=== PATIENT | male | born 1970 | race Caucasian/White ===

== ENCOUNTER 2019-01-09 12:25 | Emergency (ER) | payer BC ==
[2019-01-09 12:44] VITALS: BP 120/76
--- NOTE | 2019-01-09 13:12 | ED ---
Lower Extremity - HPI Summary HPI Summary: 48 yr old male with the complaint of right knee pain. ONset of pain yesterday. He was playing basketball with his son and twisted his knee. He has pain in the knee with effusion today. It hurts to bear weight. He states he felt something pop when he twisted the knee. Pain is moderate. No other complaints. - History of Current Complaint Chief Complaint: UCLowerExtremity Stated Complaint: RT KNEE INJURY Time Seen by Provider: 01/09/19 12:51 Pain Intensity: 8 - Allergies/Home Medications Allergies/Adverse Reactions: Allergies Allergy/AdvReac Type Severity Reaction Status Date / Time codeine AdvReac Nausea And Verified 01/09/19 12:44 Vomiting Home Medications: Home Medications Acetaminophen [Tylenol] 1,000 mg PO ONCE PRN 01/09/19 [History Confirmed ] Aspirin 81 mg CHEW TAB* [Aspirin Low Dose TAB*] 81 mg PO DAILY 01/09/19 [ History Confirmed 01/09/19] Atorvastatin* [Lipitor*] 80 mg PO DAILY 01/09/19 [History Confirmed 01/09/19] Brimonidine Tartrate/Timolol [Combigan 0.2%-0.5% Eye Drops] 5 ml OP DAILY [History Confirmed 01/09/19] Lisinopril TAB* [Prinivil TAB*] 5 mg PO DAILY 01/09/19 [History Confirmed ] Metoprolol Succinate XL TAB* [Toprol XL TAB*] 50 mg PO DAILY 01/09/19 [History Confirmed 01/09/19] Pantoprazole TAB * [Protonix TAB*] 40 mg PO DAILY 01/09/19 [History Confirmed ] PMH/Surg Hx/FS Hx/Imm Hx - Surgical History Surgery Procedure, Year, and Place: hernia. testicle removed Infectious Disease History: No Infectious Disease History: Denies: Traveled Outside the [place] in Last 30 Days - Family History Known Family History: Positive: None - Social History Occupation: Employed Full-time Lives: With Family Alcohol Use: Daily Alcohol Amount: 2 drinks per day Substance Use Type: Reports: None Smoking Status (MU): Former Smoker Length of Time of Smoking/Using Tobacco: 20 years Review of Systems Constitutional: Negative Positive: Other - knee pain, right All Other Systems Reviewed And Are Negative: Yes Physical Exam Triage Information Reviewed: Yes Vital Signs On Initial Exam: Initial Vitals Temp Pulse Resp BP Pulse Ox 98.2 F 54 16 120/76 100 01/09/19 12:39 01/09/19 12:39 01/09/19 12:39 01/09/19 12:39 01/09/19 12:39 Vital Signs Reviewed: Yes Appearance: Positive: Well-Appearing, No Pain Distress Skin: Positive: Warm, Skin Color Reflects Adequate Perfusion Head/Face: Positive: Normal Head/Face Inspection Eyes: Positive: EOMI, LILLY ENT: Positive: Normal ENT inspection Neck: Positive: Nontender Respiratory/Lung Sounds: Positive: Clear to Auscultation, Breath Sounds Present Cardiovascular: Positive: RRR. Negative: Murmur Abdomen Description: Negative: Distended Musculoskeletal: Positive: Strength/ROM Intact, Other - effusion right knee with some tenderness over the medial patella. No bruise, no erythema. Neurological: Positive: Sensory/Motor Intact, Alert, Oriented to Person Place, Time, CN Intact II-III, Speech Normal Psychiatric: Positive: Normal Diagnostics - Vital Signs Vital Signs Temp Pulse Resp BP Pulse Ox 01/09/19 12:39 98.2 F 54 16 120/76 100 - Laboratory Lab Statement: Any lab studies that have been ordered have been reviewed, and results considered in the medical decision making process. - Radiology right knee Radiology Interpretation Completed By: Radiologist - medial compartment osteoarthritis Lower Extremity Course/Dx - Course Course Of Treatment: 48 yr old male with right knee osteoarthritis. DC home. FU WITH ORTHO/PMD. DR RODRIGUEZ REFERRAL. - Diagnoses Provider Diagnoses: Internal derangement of right knee Discharge - Sign-Out/Discharge Documenting (check all that apply): Patient Departure All imaging exams completed and their final reports reviewed: Yes - Discharge Plan Condition: Good Disposition: HOME Patient Education Materials: Osteoarthritis (ED), Knee Pain (ED) Referrals: Reyna DOLAN,Mikki Andersen [Primary Care Provider] - 2 Days Susan Rodriguez MD [Medical Doctor] - 2 Days - Billing Disposition and Condition Condition: GOOD Disposition: Home
--- OUTSIDE RECORDS SUMMARY | 2019-01-09 14:37 | XMS REPORT | Continuity of Care Document ---
:1970 External Reference #:[id number] Author Name Mikki Orellana MD Address [address] [facility], [address] [place] [address] Care Team Providers Name Role Phone Mikki Orellana MD Care Team Information Community Youth Secretary Unavailable Payers Date Identification Numbers Payment Provider Subscriber PayID: [id number] [employer] Hanna Nobles [address] [address] [place] [address] Problems Active Problems Provider Date Mixed hyperlipidemia Mikki Orellana MD Onset: 07/14/2010 Tobacco user Mikki Orellana MD Onset: 07/14/2010 Family History Date Family Member(s) Observation Comments Father due to from [place], at 58 () Father [place] Mother due to from liver failure at 71 () Social History Type Date Description Comments Sex Unknown Marital Status Lives With Spouse Lives With Daughter Occupation Community Services Officer at [employer] Tobacco Use Start: Unknown End: Unknown Patient is a former smoker Allergies, Adverse Reactions, Alerts Active Allergies Reaction Severity Comments Date Codeine vomiting 09/06/2001 Medications Active Medications SIG Qnty Indications Ordering Provider Date Fluconazole 1 by mouth every 7tabs Mikki Orellana MD 12/25/2018 100mg Tablets day x 7days Aspir-81 1 by mouth every Mikki Orellana MD 02/11/[address] day Pantoprazole Sodium 1 by mouth twice 60tabs Mikki Orellana MD 09/11/2013 40mg a day Tablets DR Castro 1 tab sl stat as 1BTL R07.9 Mikki Orellana MD 05/23/2013 0.4mg Tablets needed for c.p Sub may repeat q5min x 2 if no relief after 3 tabs call 911. Glaucoma Eye gtts qd Unknown Atorvastatin Calcium 1 po qd 90tabs Unknown 80mg Tablets Metoprolol Succinate 1 po qd 30tabs Unknown ER 50mg Tablets ER 24HR Lisinopril 1 by mouth every Unknown 2.5mg Tablets day History Medications Doxycycline Hyclate 1 by mouth twice 28caps Mikki Orellana, 03/22/2016 - a day with food 03/28/2017 100mg Capsules Chantix 1 by mouth twice 60tabs Mikki Orellana, 01/20/2016 - 1mg Tablets a day 03/01/2016 Doxycycline Hyclate 1 by mouth twice 20caps iMkki Orellana, 09/16/2015 - a day with food 03/01/2016 100mg Capsules Prednisone 2 by mouth every 10tabs Mikki Orellana, 09/16/2015 - 20mg day x 5d 03/01/2016 Tablets Chantix Starting take as directed 1pk Mikki Orellana, 09/16/2015 - Month Wesley 03/28/2017 0.5mg X 11 & 1 mg X 42 Tablets Azithromycin 2 by mouth today 6tabs Mkiki Orellana, 11/18/2014 - 250mg and 1 by mouth 09/15/2015 Tablets every day for 4 days Chantix Starter Pack as 1Kit Mikki Orellana, 02/11/2014 - 0.5mg Tablets Directed 09/08/2014 Chantix 1 by mouth twice 60tabs Mikki Orellana, 02/11/2014 - 1mg Tablets a day 03/28/2017 Citalopram 1 by mouth every 30tabs Mikki Orellana, 02/11/2014 - Hydrobromide day 09/08/2014 10mg Tablets Work Note pt is out of Mikki Orellana, 06/03/2013 - work for 2 weeks 09/10/2013 due to illness. starting date today Chantix 1 po bid 60tabs Mikki Orellana, 06/12/2012 - 1mg Tablets MD 05/22/2013 Chantix Starter Pack as 1Kit Mikki Orellana, 06/12/2012 - 0.5mg Tablets Directed MD 05/22/2013 Omnicef 1 po bid 14caps 382.9 Mikki Orellana, 06/22/2010 - 300mg MD 06/11/2012 Capsules Nexium 1 po qd 30caps Mikki Orellana, 07/01/2008 - 40mg Capsules MD 09/11/2013 DR Alvarez 1 po tid prn 30tabs Mikki Orellana, 06/09/2008 - 10mg Tablets MD 02/03/2009 Ibuprofen 1 PO tid prn 90tabs Mikki Orellana, 06/09/2008 - 800mg MD 2014 Tablets Chantix 1 PO bid 60tabs Mikki Orellana, 11/27/2007 - 1mg Tablets MD 05/06/2008 Chantix Starter Pack as 1Kit Mikki Orellana, 09/20/2007 - 0.5mg Tablets Directed MD 05/06/2008 Prilosec OTC 1 po qd 30tabs Mikki Orellana, 07/17/2007 - 20mg MD 08/05/[address] Diaz 1 po bid with 20tabs Mikki Orellana, 04/23/2007 - 500mg Tablets food MD 05/03/2007 Niacin 4 po qd 120tabs Mikki Orellana, 04/26/2006 - 500mg Tablets MD 2014 Proctofoam HC Use as Directed 1CanistMikki Car, 04/05/2006 - 1%;1 % tid MD 10/23/2007 Foam Wellbutrin 1 po qd for 3 60tabs Mikki Orellana, 03/21/2006 - 100mg days then MD 10/24/2006 Tablets increase to bid Omnicef 1 PO bid 20caps 382.9 Mikki Orellana, 09/16/2004 - 300mg MD 09/26/2004 Capsules Zyrtec D 1 PO bid 14tabs 382.9 Mikki Orellana, 09/16/2004 - 5mg;120 mg MD 09/23/2004 Tablets Rhinocort Aqua Nasal one spray each 1units Mikki Orellana, 08/09/2004 - [place] nostril daily 09/16/2004 32mcg/Inhalation Suspension Augmentin 1 po po bid with 20tabs Mikki Orellana, 05/19/2004 - 875mg food 10/24/2006 Tablets Zithromax 2 PO Day 1, 1 PO 6tabs Quynh Gomez, 10/23/2003 - 250mg qd X Day 2-5 RN,RAFAL,MS 10/28/2003 Tablets Prevacid 1 po qd 30caps Mikki Orellana, 08/22/2001 - 30mg Caps 07/01/2008 Aspir-81 1 po qd 90tabs Unknown - 81mg Tablets 02/11/2014 Pantoprazole Sodium 1 po qd Unknown - 2014 Tablets Clopidogrel 1 po qd 30tabs Unknown - 75mg 03/01/2016 Tablets Medications Administered in Office Medication SIG Qnty Indications Ordering Provider Date PPD Injection Mikki Orellana MD 06/12/2012 Immunizations CPT Code Status Date Vaccine Lot # [id number] Given 04/02/2018 Influenza Vac, Quadrivalent, Split, 0.5mL Dosage, Im Use [id number] Given 03/28/2017 Influenza Vaccine Quadrivalent Preser/Antibiotic Free [place] Use [id number] Given 03/02/2016 Tdap (Adacel) Ages 7 And Above Only [id number] Given 03/02/2016 Afluria Or Fluvirin Flu Vac Intramuscular [id number] Q2037 Given 03/08/2015 Fluvirin Immunization Q2037 Given 02/11/2014 Fluvirin Immunization [id number] Q2037 Given 02/12/2013 Fluvirin Immunization [id number] Q2036 Given 02/23/2011 Flulaval Immunization [id number] Given 02/23/2010 Afluria Or Fluvirin Flu Vac Intramuscular [id number] Given 04/04/2007 Afluria Or Fluvirin Flu Vac Intramuscular [id number] 33747 Given 08/09/2004 Immunization Td 7 Yrs Or Older Vital Signs Date Vital Result Comment 12/25/2018 9:45am Body Temperature 98.1 F Weight 248.00 lb Heart Rate 88 /min BP Systolic 142 mmHg BP Diastolic 92 mmHg BP Systolic Recheck 130 mmHg BP Diastolic Recheck 82 mmHg 04/24/2018 10:55am Body Temperature 96.8 F Weight 251.00 lb Heart Rate 66 /min BP Systolic 118 mmHg BP Diastolic 70 mmHg 10/03/2017 8:10am Body Temperature 98.1 F Weight 246.00 lb Heart Rate 68 /min BP Systolic 122 mmHg BP Diastolic 68 mmHg 03/28/2017 7:55am Body Temperature 97.8 F Weight 235.00 lb Heart Rate 60 /min BP Systolic 146 mmHg BP Diastolic 96 mmHg BP Systolic Recheck 130 mmHg BP Diastolic Recheck 84 mmHg 09/20/2016 9:01am Body Temperature 97.6 F Weight 232.00 lb Heart Rate 72 /min BP Systolic 116 mmHg BP Diastolic 80 mmHg Height 70 inches 5'10" BMI (Body Mass Index) 33.3 kg/m2 03/22/2016 9:18am Body Temperature 98.0 F Weight 236.00 lb Heart Rate 80 /min BP Systolic 120 mmHg BP Diastolic 70 mmHg 03/02/2016 9:55am Body Temperature 98.1 F Weight 244.00 lb Heart Rate 80 /min BP Systolic 124 mmHg BP Diastolic 64 mmHg Height 70 inches 5'10" BMI (Body Mass Index) 35.0 kg/m2 01/20/2016 3:17pm Body Temperature 98.0 F Weight 246.00 lb BP Systolic 126 mmHg BP Diastolic 84 mmHg Height 70 inches 5'10" BMI (Body Mass Index) 35.3 kg/m2 09/16/2015 8:30am Body Temperature 97.2 F Weight 244.00 lb Heart Rate 80 /min BP Systolic 112 mmHg BP Diastolic 76 mmHg Height 70 inches 5'10" BMI (Body Mass Index) 35.0 kg/m2 11/18/2014 11:13am Body Temperature 96.8 F Weight 235.00 lb Heart Rate 60 /min BP Systolic 112 mmHg BP Diastolic 82 mmHg Height 70 inches 5'10" BMI (Body Mass Index) 33.7 kg/m2 09/09/2014 11:04am Body Temperature 97.9 F Weight 237.00 lb Heart Rate 60 /min BP Systolic 108 mmHg BP Diastolic 62 mmHg Height 70 inches 5'10" BMI (Body Mass Index) 34.0 kg/m2 02/11/2014 10:30am Body Temperature 97.7 F Weight 247.00 lb Heart Rate 80 /min BP Systolic 136 mmHg BP Diastolic 82 mmHg Height 70 inches 5'10" BMI (Body Mass Index) 35.4 kg/m2 09/11/2013 9:35am Body Temperature 97.8 F Weight 249.00 lb Heart Rate 60 /min BP Systolic 122 mmHg BP Diastolic 76 mmHg Height 70 inches 5'10" BMI (Body Mass Index) 35.7 kg/m2 05/23/2013 2:14pm Body Temperature 97.3 F Weight 226.00 lb Heart Rate 70 /min BP Systolic 132 mmHg BP Diastolic 84 mmHg Height 70 inches 5'10" BMI (Body Mass Index) 32.4 kg/m2 06/12/2012 11:18am Body Temperature 98.2 F Weight 228.00 lb Heart Rate 60 /min BP Systolic 148 mmHg BP Diastolic 92 mmHg Height 70 inches 5'10" BMI (Body Mass Index) 32.7 kg/m2 06/29/2010 11:05am Body Temperature 98.7 F Weight 221.00 lb Heart Rate 60 /min BP Systolic 132 mmHg BP Diastolic 62 mmHg Height 70 inches 5'10" BMI (Body Mass Index) 31.7 kg/m2 06/22/2010 11:27am Body Temperature 97.4 F Weight 220.00 lb Heart Rate 60 /min BP Systolic 104 mmHg BP Diastolic 68 mmHg Height 70 inches 5'10" BMI (Body Mass Index) 31.6 kg/m2 02/03/2009 11:02am Body Temperature 96.7 F Weight 225.00 lb Heart Rate 70 /min BP Systolic 126 mmHg BP Diastolic 84 mmHg 06/09/2008 1:44pm Body Temperature 98.3 F Weight 216.00 lb Heart Rate 60 /min BP Systolic 124 mmHg BP Diastolic 76 mmHg 05/06/2008 2:51pm Body Temperature 97.3 F Weight 214.00 lb Heart Rate 60 /min BP Systolic 102 mmHg BP Diastolic 68 mmHg 10/23/2007 8:18am Body Temperature 96.3 F Weight 219.00 lb Heart Rate 70 /min BP Systolic 106 mmHg BP Diastolic 64 mmHg 10/24/2006 8:51am Body Temperature 97.2 F Weight 215.00 lb Heart Rate 80 /min BP Systolic 108 mmHg BP Diastolic 76 mmHg 07/18/2006 9:57am Body Temperature 97.3 F Weight 211.00 lb Heart Rate 70 /min BP Systolic 108 mmHg BP Diastolic 70 mmHg 06/06/2006 8:56am Body Temperature 98.0 F Weight 214.00 lb Heart Rate 80 /min BP Systolic 106 mmHg BP Diastolic 82 mmHg 04/05/2006 2:08pm Body Temperature 96.9 F Weight 211.00 lb Heart Rate 60 /min BP Systolic 110 mmHg BP Diastolic 66 mmHg 03/21/2006 11:17am Body Temperature 98.5 F Weight 211.00 lb Heart Rate 80 /min BP Systolic 114 mmHg BP Diastolic 80 mmHg 11/29/2005 1:35pm Body Temperature 97.8 F Weight 214.00 lb Heart Rate 70 /min BP Systolic 124 mmHg BP Diastolic 78 mmHg 06/28/2005 10:27am Body Temperature 97.7 F Weight 206.00 lb Heart Rate 60 /min BP Systolic 136 mmHg BP Diastolic 64 mmHg 09/16/2004 2:27pm Body Temperature 97.2 F Weight 209.00 lb BP Systolic 104 mmHg BP Diastolic 70 mmHg 08/09/2004 11:10am Body Temperature 96.9 F Weight 209.00 lb Heart Rate 70 /min BP Systolic 124 mmHg BP Diastolic 72 mmHg 05/19/2004 11:29am Body Temperature 96.5 F Weight 206.00 lb Heart Rate 70 /min BP Systolic 106 mmHg BP Diastolic 74 mmHg 10/23/2003 8:46am Body Temperature 98.7 F Weight 204.00 lb Heart Rate 72 /min BP Systolic 110 mmHg BP Diastolic 60 mmHg Respiratory Rate 20 /min 02/12/2003 9:52pm Body Temperature 98.7 F Weight 203.00 lb Heart Rate 80 /min BP Systolic 128 mmHg BP Diastolic 62 mmHg Respiratory Rate 20 /min 10/17/2001 9:25pm Body Temperature 98.6 F Heart Rate 80 /min BP Systolic 110 mmHg Sitting BP Diastolic 64 mmHg Sitting BP Systolic Recheck 118 mmHg Lying BP Diastolic Recheck 60 mmHg Lying 09/05/2001 12:23pm Body Temperature 98.7 F Weight 210.00 lb Heart Rate 70 /min BP Systolic 120 mmHg BP Diastolic 70 mmHg Results Test Date Facility Test Result H/L Range Note Laboratory test 12/25/2018 [facility] Hemoglobin A1c <pending> finding Basic (BMP) 04/24/2018 [facility] Sodium 139 mmol/L 135-146 1 Potassium 4.8 mmol/L 3.5-5.2 Chloride# 105 mmol/L 97-110 2 Carbon Dioxide 27 mmol/L 24-34 Glucose 112 mg/dL High 70-105 BUN 11 mg/dL 6-26 Creatinine 1.0 mg/dL 0.5-1.4 Calcium 9.9 mg/dL 8.5-10.2 Non Nita Egfr >60 >60 3 Nita Egfr >60 >60 4 Anion Gap 7 mmol/L 5-15 5 Laboratory test finding 04/24/2018 [facility] PSA 1.080 ng/mL 0.000-4.000 6 Hemoglobin A1c 04/24/2018 [facility] Hemoglobin A1c 5.8 % 4.1-5.9 Estimated Average Glucose Calc 120 mg/dL 71-140 Lipid Treatment 04/24/2018 [facility] Cholesterol 100 mg/dL 50-199 Triglycerides 100 mg/dL 30-200 HDL 34 mg/dL 7 Chol/ HDL Ratio 2.9 ratio Low 4.0-6.7 VLDL 20 mg/dL 2-29 LDL (Calc) 46 mg/dL 20-99 8 Alt 68 U/L High -42 Ast 38 U/L 8- Basic (BMP) 10/03/2017 [facility] Sodium 140 mmol/L 135-146 9 Potassium 4.4 mmol/L 3.5-5.2 Chloride# 106 mmol/L 97-110 10 Carbon Dioxide 26 mmol/L 24-34 Glucose 134 mg/dL High 70-105 BUN 18 mg/dL 6-26 Creatinine 1.1 mg/dL 0.5-1.4 Calcium 9.7 mg/dL 8.5-10.2 Non Nita Egfr >60 >60 11 Nita Egfr >60 >60 12 Anion Gap 8 mmol/L 5-15 13 Hemoglobin A1c 10/03/2017 [facility] Hemoglobin A1c 5.7 % 4.1-5.9 Estimated Average Glucose Calc 117 mg/dL 71-140 Lipid Treatment 10/03/2017 [facility] Cholesterol 91 mg/dL 50-199 Triglycerides 72 mg/dL 30-200 HDL 35 mg/dL 14 Chol/ HDL Ratio 2.6 ratio Low 4.0-6.7 VLDL 14 mg/dL 2-29 LDL (Calc) 42 mg/dL 20-99 15 Alt 56 U/L High 3-42 Ast 27 U/L 8-42 Lipid Treatment 03/28/2017 [facility] Cholesterol 89 mg/dL 50-199 Triglycerides 120 mg/dL 30-200 HDL 32 mg/dL 16 Chol/ HDL Ratio 2.8 ratio Low 4.0-6.7 VLDL 24 mg/dL 2-29 LDL (Calc) 33 mg/dL 20-99 17 Alt 43 U/L High 3-42 Ast 22 U/L 8-42 Hemoglobin A1c 03/28/2017 [facility] Hemoglobin A1c 5.5 % 4.1-5.9 Estimated Average Glucose Calc 111 71-140 Basic (BMP) 03/28/2017 [facility] Sodium 140 mmol/L 135-146 18 Potassium 4.1 mmol/L 3.5-5.2 Chloride# 106 mmol/L 97-110 19 Carbon Dioxide 27 mmol/L 24-34 Glucose 133 mg/dL High 70-105 Creatinine 1.1 mg/dL 0.5-1.4 Calcium 10.0 mg/dL 8.5-10.2 Non Nita Egfr >60 >60 20 Nita Egfr >60 >60 21 Anion Gap 7 mmol/L 7-16 22 BUN 17 mg/dL 6-26 Basic (BMP) 09/20/2016 [facility] Sodium 140 mmol/L 135-146 23 Potassium 3.9 mmol/L 3.5-5.2 Chloride# 107 mmol/L 97-110 24 Carbon Dioxide 28 mmol/L 24-34 Glucose 146 mg/dL High 70-105 BUN 15 mg/dL 6- Creatinine 0.8 mg/dL 0.5-1.4 Calcium 9.5 mg/dL 8.5-10.2 Non Nita Egfr >60 >60 25 Nita Egfr >60 >60 26 Anion Gap 9 mmol/L 7-16 27 [facility] 5.7 % 4.1-5.9 Estimated Average Glucose Calc 117 71-140 Lipid Treatment 09/20/2016 [facility] Cholesterol 90 mg/dL 50-199 Triglycerides 93 mg/dL 30-200 HDL 31 mg/dL 29- 28 Chol/ HDL Ratio 2.9 ratio Low 4.0-6.7 VLDL 19 mg/dL 2-29 LDL (Calc) 40 mg/dL 20-99 29 Alt 28 U/L 3-42 Ast 15 U/L 8-42 Laboratory test finding 03/30/2016 [facility] Hemoglobin A1c 5.7 % 4.1-5.9 Basic (BMP) 03/22/2016 [facility] Sodium 136 mmol/L 134-142 Potassium 3.9 mmol/L 3.5-5.2 Chloride 108 mmol/L 97-109 Carbon Dioxide 25 mmol/L 24-34 Glucose 150 mg/dL High 70-105 BUN 12 mg/dL 6- Creatinine 1.0 mg/dL 0.5-1.4 Calcium 9.5 mg/dL 8.5-10.2 Anion Gap 7 mmol/L 11-08 Non Nita Egfr >60 >60 30 Nita Egfr >60 >60 31 Lipid Treatment 03/22/2016 [facility] Cholesterol 93 mg/dL 50-199 Triglycerides 135 mg/dL 30-200 HDL 24 mg/dL Low 29-71 32 Chol/ HDL Ratio 3.9 ratio Low 4.0-6.7 VLDL 27 mg/dL 2- LDL (Calc) 42 mg/dL 20-99 33 Alt 37 U/L 3- Ast 20 U/L 8- Basic (BMP) 09/09/2014 [facility] Sodium 141 mmol/L 134-142 Potassium 4.2 mmol/L 3.5-5.2 Chloride 106 mmol/L 97-109 Carbon Dioxide 25 mmol/L 24-34 Glucose 110 mg/dL High 70-105 BUN 12 mg/dL 11-20 Creatinine 0.9 mg/dL 0.5-1.4 Calcium 9.4 mg/dL 8.5-10.2 Anion Gap 14 mmol/L 11-08 Non Nita Egfr >60 >60 34 Nita Egfr >60 >60 35 Lipid Treatment 09/09/2014 [facility] Cholesterol 92 mg/dL 50-199 Triglycerides 140 mg/dL 30-200 HDL 29 mg/dL 36 Chol/ HDL Ratio 3.2 ratio Low 4.0-6.7 VLDL 28 mg/dL LDL (Calc) 35 mg/dL 20-99 37 Alt 41 U/L Ast 22 U/L - Basic (BMP) 02/11/2014 [facility] Sodium 138 mmol/L 134-142 38 Potassium 4.1 mmol/L 3.5-5.2 Chloride 106 mmol/L 97-109 Carbon Dioxide 28 mmol/L 24-34 Glucose 114 mg/dL High 70-105 BUN 14 mg/dL 6 Creatinine 0.8 mg/dL 0.5-1.4 Calcium 9.4 mg/dL 8.5-10.2 Anion Gap 8 mmol/L 11-08 Non Nita Egfr >60 >60 39 Nita Egfr >60 >60 40 Lipid Treatment 02/11/2014 [facility] Cholesterol 86 mg/dL 50-199 Triglycerides 108 mg/dL 30-200 HDL 28 mg/dL Low 29-71 41 Chol/ HDL Ratio 3.1 ratio Low 4.0-6.7 VLDL 22 mg/dL 2-29 LDL (Calc) 36 mg/dL 20-99 42 Alt 47 U/L High 3-42 Ast 20 U/L 8-42 Laboratory test finding 09/11/2013 [facility] TSH 1.99 uIU/mL 0.34-5.60 Free T4 0.80 ng/dL 0.50-1.60 Comprehensive Metabolic (CMP) 09/11/2013 [facility] Sodium 141 mmol/L 134- 142 Potassium 4.4 mmol/L 3.5-5.2 Chloride 107 mmol/L 97-109 Carbon Dioxide 28 mmol/L 24-34 Glucose 103 mg/dL 70-105 BUN 20 mg/dL 6-26 Creatinine 1.0 mg/dL 0.5-1.4 Calcium 9.6 mg/dL 8.5-10.2 Total Protein 6.9 g/dL 6.0-8.0 Albumin 4.7 g/dL 3.6-4.9 Globulin 2.2 g/dL 2.0-3.5 A/G Ratio 2.1 Ratio 1.0-2.2 Total Bilirubin 0.6 mg/dL 0.1-1.3 Alkaline Phosphatase 85 U/L 24-140 Alt 44 U/L High 3-42 Ast 19 U/L 8-42 Anion Gap 10 mmol/L 6-14 Nita Egfr >60 >60 43 Non Nita Egfr >60 >60 44 Laboratory test finding 09/11/2013 [facility] CPK 89 U/L 12-199 CBC With Auto Diff 09/11/2013 [facility] WBC 6.0 K/uL 4.1-11.0 RBC 4.96 M/uL 4.60-6.10 Hemoglobin 15.8 gm/dL 13.5-18.0 Hematocrit 45.0 % 41.0-53.0 MCV 90.8 fL 80.0-97.0 MCH 31.8 pg 27.0-32.0 MCHC 35.1 g/dL 32.0-36.0 RDW 13.2 % 11.5-14.5 PLT Count 113 K/ul Low 140-400 Neutrophil 67.1 % 35.0-75.0 Lymphocyte 25.0 % 16.0-52.0 Monocyte 5.9 % 2.0-10.0 Eosinophil 1.3 % 0.0-5.0 Basophil 0.7 % 0.0-4.0 Abs Neutrophils 4.0 K/uL 2.1-8.0 Abs Lymphocytes 1.5 K/uL 0.8-5.5 Abmon 0.4 K/uL 0.1-1.0 Abs Eosinophils 0.1 K/uL 0.0-0.5 Abs Basophils 0.0 K/uL 0.0-0.3 CBC With Auto Diff 05/23/2013 [facility] WBC 10.7 K/uL 4.1-11.0 RBC 5.06 M/uL 4.60-6.10 Hemoglobin 16.1 gm/dL 13.5-18.0 Hematocrit 46.9 % 41.0-53.0 MCV 92.8 fL 80.0-97.0 MCH 31.9 pg 27.0-32.0 MCHC 34.3 g/dL 32.0-36.0 RDW 12.8 % 11.5-14.5 PLT Count Large platelets <SEE NOTE> K/ul 140-400 45 Neutrophil 68.5 % 35.0-75.0 Lymphocyte 22.8 % 16.0-52.0 Monocyte 5.6 % 2.0-10.0 Eosinophil 2.7 % 0.0-5.0 Basophil 0.4 % 0.0-4.0 Abs Neutrophils 7.3 K/uL 2.1-8.0 Abs Lymphocytes 2.4 K/uL 0.8-5.5 Abmon 0.6 K/uL 0.1-1.0 Abs Eosinophils 0.3 K/uL 0.0-0.5 Abs Basophils 0.0 K/uL 0.0-0.3 Laboratory test finding 05/23/2013 [facility] TSH 1.05 uIU/mL 0.34-5.60 Lipid 05/23/2013 [facility] Cholesterol 172 mg/dL 50-199 Triglycerides 309 mg/dL High 30-200 HDL 32 mg/dL 29-71 46 Chol/ HDL Ratio 5.4 ratio 4.0-6.7 VLDL 62 mg/dL High 2-29 LDL (Calc) 78 mg/dL 20-99 47 Comprehensive Metabolic (CMP) 05/23/2013 [facility] Sodium 138 mmol/L 134- 142 Potassium 4.1 mmol/L 3.5-5.2 Chloride 106 mmol/L 97-109 Carbon Dioxide 27 mmol/L 24-34 Glucose 91 mg/dL 70-105 BUN 16 mg/dL 6-26 Creatinine 0.9 mg/dL 0.5-1.4 Calcium 9.8 mg/dL 8.5-10.2 Total Protein 7.1 g/dL 6.0-8.0 Albumin 4.6 g/dL 3.6-4.9 Globulin 2.5 g/dL 2.0-3.5 A/G Ratio 1.8 Ratio 1.0-2.2 Total Bilirubin 0.4 mg/dL 0.1-1.3 Alkaline Phosphatase 70 U/L 24-140 Alt 26 U/L 3-42 Ast 19 U/L 8-42 Anion Gap 9 mmol/L 6-14 Nita Egfr >60 >60 48 Non Nita Egfr >60 >60 49 Basic (BMP) 06/12/2012 [facility] Sodium 138 mmol/L 134-142 Potassium 4.2 mmol/L 3.5-5.2 Chloride 106 mmol/L 97-109 Carbon Dioxide 28 mmol/L 24-34 Glucose 92 mg/dL 70-105 BUN 11 mg/dL 6-26 Creatinine 0.9 mg/dL 0.5-1.4 Calcium 9.4 mg/dL 8.5-10.2 Anion Gap 8 mmol/L 6-14 Non Nita Egfr >60 >60 50 Nita Egfr >60 >60 51 Lipid Treatment 06/12/2012 [facility] Cholesterol 148 mg/dL 50-199 Triglycerides 114 mg/dL 30-200 HDL 32 mg/dL 29-71 52 Chol/ HDL Ratio 4.6 ratio 4.0-6.7 VLDL 23 mg/dL 2-29 LDL (Calc) 93 mg/dL 20-129 53 Non HDL Cholesterol 116 mg/dL 20-129 54 Alt 30 U/L 3-42 Ast 15 U/L 8-42 Lipid TX Panel 02/03/2009 [facility] (Do not Use) Ast 29 U/L 12-40 55 [facility] [place], [place] [id number] [phone] Alt 47 U/L High 5-45 Cholesterol 158 mg/dL 50-199 Triglycerides 160 mg/dL High 10-150 HDL 27 mg/dL Low 29-71 56 LDL (Calc) 99 mg/dL 20-129 57 Chol/HDL Ratio 5.9 Ratio 4.0-6.7 58 VLDL 32 mg/dL High 2-29 Lipid TX Panel 05/06/2008 [facility] (Do not Use) Ast 23 U/L 12-40 [facility] [place] [address] [phone] Alt 41 U/L 4-45 Cholesterol 146 mg/dL 50-199 Triglycerides 149 mg/dL 10-150 HDL 25 mg/dL Low 29-71 59 LDL (Calc) 91 mg/dL 20-129 60 Chol/HDL Ratio 5.8 Ratio 61 VLDL 30 mg/dL Lipid TX Panel 10/23/2007 [facility] (Do not Use) Ast 26 U/L 12-40 [place] [address] [phone] Alt 42 U/L 4-45 Cholesterol 177 mg/dL 50-199 Triglycerides 100 mg/dL 10-150 HDL 32 mg/dL 29-71 LDL (Calc) 125 mg/dL 20-129 Chol/HDL Ratio 5.5 Ratio VLDL 20 mg/dL Lipid Panel 10/24/2006 [facility] (Do not Use) Cholesterol 157 mg/dL 50 -199 [place] [address] [phone] Triglycerides 134 mg/dL 10-150 HDL 30 mg/dL -71 Chol/HDL Ratio 5.2 Ratio VLDL 27 mg/dL LDL (Calc) 100 mg/dL 20-129 Lipid Panel 04/23/2006 [facility] (Do not Use) Cholesterol 130 mg/dL 50 -199 [address] [place] [address] [phone] Triglycerides 109 mg/dL 10-150 HDL 27 mg/dL Low 71 Chol/HDL Ratio 4.8 Ratio VLDL 22 mg/dL LDL (Calc) 81 mg/dL 20-129 Laboratory test 10/17/2001 [facility] (Do not Use) TSH 1.57 uIU/ml 0.50 -6.00 [address] [place] [address] [phone] CBC 10/17/2001 [facility] (Do not Use) WBC 8.0 K/ul 4.1-10.9 [place] [address] [phone] RBC 4.83 M/ul 4.2-6.3 Hemoglobin 15.8 GM/dl 12.0-16.0 Hematocrit 44.5 % 37.0-51.0 MCV 92.1 FL 80-97 MCH 32.6 pg High 26.0-32.0 MCHC 35.4 g/dL 31.0-36.0 RDW 12.3 % 11.5-14.5 Platelet Count 144 K/ul 140-440 Basic (BMP) 10/17/2001 [facility] (Do not Use) Sodium 142 mmol/L 137- 145 [facility] [place] [place] [address] [phone] Potassium 4.5 mmol/L 3.6-5.0 Chloride 104 mmol/L 98-107 Carbon Dioxide 25 mmol/L 22-30 Glucose 79 mg/dL 75-110 BUN 16 mg/dL 9-21 Creatinine, Serum 1.0 mg/dL 0.8-1.5 BUN/CR Ratio 15.2 Ratio 12-20 Anion Gap 18 mmol/L 10-20 Calcium 10.0 mg/dL 8.7-10.5 Diff For Manual CBC 10/17/2001 [facility] (Do not Use) RBC Morphology NORMAL [facility] [place] [address] [phone] Neutrophil 77.0 % High 50-70 Lymphocyte 15.0 % Low 20-44 Monocyte 7.0 % 2-9 Basophil 1.0 % 0-2 Platelet Estimate NORMAL 1 Updated reference range on new analyzer 2 Updated reference range on new analyzer 3 Concerning GFR Guidelines: Normal function or mild renal disease, if clinically at risk: >/=60 mL/min Moderately decreased: 30-59 Severely decreased: 15-29 Renal failure: <15 Glomerular Filtration Rate (GFR) is estimated based on the MDRD equation, which assumes a steady state for creatinine as recommended by the National Kidney Disease Education Program in conjunction with the National Institutes of Health and the National Kidney Foundation. Clinical conditions in which it may be necessary to measure GFR by using clearance methods include extremes of age and body size, severe malnutrition or obesity, diseases of skeletal muscle, paraplegia or quadriplegia, vegetarian diet, rapidly changing kidney function, and calculation of the dose of potentially toxic drugs that are excreted by the kidneys. 4 Concerning GFR Guidelines for Americans: Normal function or mild renal disease, if clinically at risk: >/=60 mL/min Moderately decreased: 30-59 Severely decreased: 15-29 Renal failure: <15 5 Updated Reference Range 6 Beginning 07/23/06 PSA values assayed at [employer] uses chemiluminescence methodology manufactured by [employer] for use on the DXI analyzer. Values obtained with different assay methods or kits can not be used interchangeably. Serum PSA measurement is not an absolute test for malignancy. The PSA value should be used in conjunction with information available from clinical evaluation and other diagnostic procedures. 7 Per NCEP ATP III Guidelines: Results lower than 40 mg/dL are suggestive of increased risk for coronary artery disease. Results > or=to 60 mg/dL are considered a negative risk factor. 8 Per NCEP ATP III Guidelines: Normal Population <130 Patients with medical conditions: CHD/DM Optimal: <100 Borderline high: 130-159 High: 160-189 Very high: >189 9 Updated reference range on new analyzer 10 Updated reference range on new analyzer 11 Concerning GFR Guidelines: Normal function or mild renal disease, if clinically at risk: >/=60 mL/min Moderately decreased: 30-59 Severely decreased: 15-29 Renal failure: <15 Glomerular Filtration Rate (GFR) is estimated based on the MDRD equation, which assumes a steady state for creatinine as recommended by the National Kidney Disease Education Program in conjunction with the National Institutes of Health and the National Kidney Foundation. Clinical conditions in which it may be necessary to measure GFR by using clearance methods include extremes of age and body size, severe malnutrition or obesity, diseases of skeletal muscle, paraplegia or quadriplegia, vegetarian diet, rapidly changing kidney function, and calculation of the dose of potentially toxic drugs that are excreted by the kidneys. 12 Concerning GFR Guidelines for Americans: Normal function or mild renal disease, if clinically at risk: >/=60 mL/min Moderately decreased: 30-59 Severely decreased: 15-29 Renal failure: <15 13 Updated Reference Range 14 Per NCEP ATP III Guidelines: Results lower than 40 mg/dL are suggestive of increased risk for coronary artery disease. Results > or=to 60 mg/dL are considered a negative risk factor. 15 Per NCEP ATP III Guidelines: Normal Population <130 Patients with medical conditions: CHD/DM Optimal: <100 Borderline high: 130-159 High: 160-189 Very high: >189 16 Per NCEP ATP III Guidelines: Results lower than 40 mg/dL are suggestive of increased risk for coronary artery disease. Results > or=to 60 mg/dL are considered a negative risk factor. 17 Per NCEP ATP III Guidelines: Normal Population <130 Patients with medical conditions: CHD/DM Optimal: <100 Borderline high: 130-159 High: 160-189 Very high: >189 18 Updated reference range on new analyzer 19 Updated reference range on new analyzer 20 Concerning GFR Guidelines: Normal function or mild renal disease, if clinically at risk: >/=60 mL/min Moderately decreased: 30-59 Severely decreased: 15-29 Renal failure: <15 Glomerular Filtration Rate (GFR) is estimated based on the MDRD equation, which assumes a steady state for creatinine as recommended by the National Kidney Disease Education Program in conjunction with the National Institutes of Health and the National Kidney Foundation. Clinical conditions in which it may be necessary to measure GFR by using clearance methods include extremes of age and body size, severe malnutrition or obesity, diseases of skeletal muscle, paraplegia or quadriplegia, vegetarian diet, rapidly changing kidney function, and calculation of the dose of potentially toxic drugs that are excreted by the kidneys. 21 Concerning GFR Guidelines for Americans: Normal function or mild renal disease, if clinically at risk: >/=60 mL/min Moderately decreased: 30-59 Severely decreased: 15-29 Renal failure: <15 22 Updated reference range on new analyzer 23 Updated reference range on new analyzer 24 Updated reference range on new analyzer 25 Concerning GFR Guidelines: Normal function or mild renal disease, if clinically at risk: >/=60 mL/min Moderately decreased: 30-59 Severely decreased: 15-29 Renal failure: <15 Glomerular Filtration Rate (GFR) is estimated based on the MDRD equation, which assumes a steady state for creatinine as recommended by the National Kidney Disease Education Program in conjunction with the National Institutes of Health and the National Kidney Foundation. Clinical conditions in which it may be necessary to measure GFR by using clearance methods include extremes of age and body size, severe malnutrition or obesity, diseases of skeletal muscle, paraplegia or quadriplegia, vegetarian diet, rapidly changing kidney function, and calculation of the dose of potentially toxic drugs that are excreted by the kidneys. 26 Concerning GFR Guidelines for Americans: Normal function or mild renal disease, if clinically at risk: >/=60 mL/min Moderately decreased: 30-59 Severely decreased: 15-29 Renal failure: <15 27 Updated reference range on new analyzer 28 Per NCEP ATP III Guidelines: Results lower than 40 mg/dL are suggestive of increased risk for coronary artery disease. Results > or=to 60 mg/dL are considered a negative risk factor. 29 Per NCEP ATP III Guidelines: Normal Population <130 Patients with medical conditions: CHD/DM Optimal: <100 Borderline high: 130-159 High: 160-189 Very high: >189 30 Concerning GFR Guidelines: Normal function or mild renal disease, if clinically at risk: >/=60 mL/min Moderately decreased: 30-59 Severely decreased: 15-29 Renal failure: <15 Glomerular Filtration Rate (GFR) is estimated based on the MDRD equation, which assumes a steady state for creatinine as recommended by the National Kidney Disease Education Program in conjunction with the National Institutes of Health and the National Kidney Foundation. Clinical conditions in which it may be necessary to measure GFR by using clearance methods include extremes of age and body size, severe malnutrition or obesity, diseases of skeletal muscle, paraplegia or quadriplegia, vegetarian diet, rapidly changing kidney function, and calculation of the dose of potentially toxic drugs that are excreted by the kidneys. 31 Concerning GFR Guidelines for Americans: Normal function or mild renal disease, if clinically at risk: >/=60 mL/min Moderately decreased: 30-59 Severely decreased: 15-29 Renal failure: <15 32 Per NCEP ATP III Guidelines: Results lower than 40 mg/dL are suggestive of increased risk for coronary artery disease. Results > or=to 60 mg/dL are considered a negative risk factor. 33 Per NCEP ATP III Guidelines: Normal Population <130 Patients with medical conditions: CHD/DM Optimal: <100 Borderline high: 130-159 High: 160-189 Very high: >189 34 Concerning GFR Guidelines: Normal function or mild renal disease, if clinically at risk: >/=60 mL/min Moderately decreased: 30-59 Severely decreased: 15-29 Renal failure: <15 Glomerular Filtration Rate (GFR) is estimated based on the MDRD equation, which assumes a steady state for creatinine as recommended by the National Kidney Disease Education Program in conjunction with the National Institutes of Health and the National Kidney Foundation. Clinical conditions in which it may be necessary to measure GFR by using clearance methods include extremes of age and body size, severe malnutrition or obesity, diseases of skeletal muscle, paraplegia or quadriplegia, vegetarian diet, rapidly changing kidney function, and calculation of the dose of potentially toxic drugs that are excreted by the kidneys. 35 Concerning GFR Guidelines for Americans: Normal function or mild renal disease, if clinically at risk: >/=60 mL/min Moderately decreased: 30-59 Severely decreased: 15-29 Renal failure: <15 36 Per NCEP ATP III Guidelines: Results lower than 40 mg/dL are suggestive of increased risk for coronary artery disease. Results > or=to 60 mg/dL are considered a negative risk factor. 37 Per NCEP ATP III Guidelines: Normal Population <130 Patients with medical conditions: CHD/DM Optimal: <100 Borderline high: 130-159 High: 160-189 Very high: >189 38 Fastin hours 39 Concerning GFR Guidelines: Normal function or mild renal disease, if clinically at risk: >/=60 mL/min Moderately decreased: 30-59 Severely decreased: 15-29 Renal failure: <15 Glomerular Filtration Rate (GFR) is estimated based on the MDRD equation, which assumes a steady state for creatinine as recommended by the National Kidney Disease Education Program in conjunction with the National Institutes of Health and the National Kidney Foundation. Clinical conditions in which it may be necessary to measure GFR by using clearance methods include extremes of age and body size, severe malnutrition or obesity, diseases of skeletal muscle, paraplegia or quadriplegia, vegetarian diet, rapidly changing kidney function, and calculation of the dose of potentially toxic drugs that are excreted by the kidneys. 40 Concerning GFR Guidelines for Americans: Normal function or mild renal disease, if clinically at risk: >/=60 mL/min Moderately decreased: 30-59 Severely decreased: 15-29 Renal failure: <15 41 Per NCEP ATP III Guidelines: Results lower than 40 mg/dL are suggestive of increased risk for coronary artery disease. Results > or=to 60 mg/dL are considered a negative risk factor. 42 Per NCEP ATP III Guidelines: Normal Population <130 Patients with medical conditions: CHD/DM Optimal: <100 Borderline high: 130-159 High: 160-189 Very high: >189 43 Concerning GFR Guidelines for Americans: Normal function or mild renal disease, if clinically at risk: >/=60 mL/min Moderately decreased: 30-59 Severely decreased: 15-29 Renal failure: <15 44 Concerning GFR Guidelines: Normal function or mild renal disease, if clinically at risk: >/=60 mL/min Moderately decreased: 30-59 Severely decreased: 15-29 Renal failure: <15 Glomerular Filtration Rate (GFR) is estimated based on the MDRD equation, which assumes a steady state for creatinine as recommended by the National Kidney Disease Education Program in conjunction with the National Institutes of Health and the National Kidney Foundation. Clinical conditions in which it may be necessary to measure GFR by using clearance methods include extremes of age and body size, severe malnutrition or obesity, diseases of skeletal muscle, paraplegia or quadriplegia, vegetarian diet, rapidly changing kidney function, and calculation of the dose of potentially toxic drugs that are excreted by the kidneys. 45 Large platelets present. Count appears normal. 46 Per NCEP ATP III Guidelines: Results lower than 40 mg/dL are suggestive of increased risk for coronary artery disease. Results > or=to 60 mg/dL are considered a negative risk factor. 47 Per NCEP ATP III Guidelines: Normal Population <130 Patients with medical conditions: CHD/DM Optimal: <100 Borderline high: 130-159 High: 160-189 Very high: >189 48 Concerning GFR Guidelines for Americans: Normal function or mild renal disease, if clinically at risk: >/=60 mL/min Moderately decreased: 30-59 Severely decreased: 15-29 Renal failure: <15 49 Concerning GFR Guidelines: Normal function or mild renal disease, if clinically at risk: >/=60 mL/min Moderately decreased: 30-59 Severely decreased: 15-29 Renal failure: <15 Glomerular Filtration Rate (GFR) is estimated based on the MDRD equation, which assumes a steady state for creatinine as recommended by the National Kidney Disease Education Program in conjunction with the National Institutes of Health and the National Kidney Foundation. Clinical conditions in which it may be necessary to measure GFR by using clearance methods include extremes of age and body size, severe malnutrition or obesity, diseases of skeletal muscle, paraplegia or quadriplegia, vegetarian diet, rapidly changing kidney function, and calculation of the dose of potentially toxic drugs that are excreted by the kidneys. 50 Concerning GFR Guidelines: Normal function or mild renal disease, if clinically at risk: >/=60 mL/min Moderately decreased: 30-59 Severely decreased: 15-29 Renal failure: <15 Glomerular Filtration Rate (GFR) is estimated based on the MDRD equation, which assumes a steady state for creatinine as recommended by the National Kidney Disease Education Program in conjunction with the National Institutes of Health and the National Kidney Foundation. Clinical conditions in which it may be necessary to measure GFR by using clearance methods include extremes of age and body size, severe malnutrition or obesity, diseases of skeletal muscle, paraplegia or quadriplegia, vegetarian diet, rapidly changing kidney function, and calculation of the dose of potentially toxic drugs that are excreted by the kidneys. 51 Concerning GFR Guidelines for Americans: Normal function or mild renal disease, if clinically at risk: >/=60 mL/min Moderately decreased: 30-59 Severely decreased: 15-29 Renal failure: <15 52 Per NCEP ATP III Guidelines: Results lower than 40 mg/dL are suggestive of increased risk for coronary artery disease. Results > or=to 60 mg/dL are considered a negative risk factor. 53 Per NCEP ATP III Guidelines: Optimal: <100 Near optimal: 100-129 Borderline high: 130-159 High: 160-189 Very high: >189 54 Desirable: <130 Borderline High: 130-159 High: 160-189 Very high: 190 or greater 55 This sample is drawn by:[facility] 56 PER NCEP ATP III GUIDELINES: RESULTS LOWER THAN 40 MG/DL ARE SUGGESTIVE OF INCREASED RISK FOR CORONARY ARTERY DISEASE. RESULTS > OR=TO 60 MG/DL ARE CONSIDERED A NEGATIVE RISK FACTOR. 57 PER NCEP ATP III GUIDELINES: OPTIMAL: <100 NEAR OPTIMAL: 100 - 129 BORDERLINE HIGH: 130 - 159 HIGH: 160 - 189 VERY HIGH: >189 58 INTERPRETATION OF CHOL-HDL RATIO CHD RISK FEMALE MALE VERY HIGH >8.3 >14.3 HIGH 5.6 - 8.3 6.7 - 14.3 AVERAGE 3.7 - 5.6 4.0 - 6.7 BELOW AVERAGE 2.5 - 3.7 2.7 - 4.0 PROTECTED <2.5 <2.7 59 PER NCEP ATP III GUIDELINES: RESULTS LOWER THAN 40 MG/DL ARE SUGGESTIVE OF INCREASED RISK FOR CORONARY ARTERY DISEASE. RESULTS > OR=TO 60 MG/DL ARE CONSIDERED A NEGATIVE RISK FACTOR. 60 PER NCEP ATP III GUIDELINES: OPTIMAL: <100 NEAR OPTIMAL: 100 - 129 BORDERLINE HIGH: 130 - 159 HIGH: 160 - 189 VERY HIGH: >189 61 INTERPRETATION OF CHOL-HDL RATIO CHD RISK FEMALE MALE VERY HIGH >8.3 >14.3 HIGH 5.6 - 8.3 6.7 - 14.3 AVERAGE 3.7 - 5.6 4.0 - 6.7 BELOW AVERAGE 2.5 - 3.7 2.7 - 4.0 PROTECTED <2.5 <2.7 62 FASTING 63 New Method as of 10/17/01 using Third Generation TSH methodolgy Procedures Date Code Description Status 03/02/2016 07392 Repair Superfic Wound < 2.6CM Completed Scalp/Neck/Axil/Genit/Trunk/Extr 05/23/2013 43833 Electrocardiogram Complete Completed 03/21/2006 27678 Visual Screening Test Completed 03/21/2006 44202 Screening Hearing Test Completed 09/16/2004 91677 Tympanometry Completed Encounters Type Date Location Provider Dx Diagnosis Office Visit 04/24/2018 Mikki Rivas MD R73.01 Impaired fasting 11:00a glucose E78.2 Mixed hyperlipidemia I10 Essential (primary) hypertension Z12.11 Encounter for screening for malignant neoplasm of colon Z12.5 Encounter for screening for malignant neoplasm of prostate K21.0 Gastro-esophageal reflux disease with esophagitis Office Visit 10/03/2017 8:15a Mikki Rivas MD E78.2 Mixed hyperlipidemia R73.01 Impaired fasting glucose I10 Essential (primary) hypertension 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 Office Visit 03/28/2017 8:00a Mikki Rivas MD R73.01 Impaired fasting glucose E78.2 Mixed hyperlipidemia I10 Essential (primary) hypertension 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 w/o banner pctrs Z23 Encounter for immunization Office Visit 09/20/2016 9:45a Mikki Rivas MD R73.01 Impaired fasting glucose E78.2 Mixed hyperlipidemia K21.0 Gastro-esophageal reflux disease with esophagitis F17.200 Nicotine dependence, unspecified, uncomplicated Office Visit 03/22/2016 9:15a Mikki Rivas MD E78.2 Mixed hyperlipidemia K21.0 Gastro-esophageal reflux disease with esophagitis I10 Essential (primary) hypertension J01.00 Acute maxillary sinusitis, unspecified Office Visit 01/20/2016 3:00p Mikki Rivas, J20.9 Acute bronchitisMD unspecified Office Visit 09/16/2015 8:30a Mikki Rivas, F17.200 Nicotine dependence, unspecified, uncomplicated E78.2 Mixed hyperlipidemia 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 J01.00 Acute maxillary sinusitis, unspecified K21.0 Gastro-esophageal reflux disease with esophagitis Office Visit 11/18/2014 11:15a Mikki Rivas, 461.0 Sinusitis Acute MD Maxillary Office Visit 09/09/2014 11:15a Mikki Rivas, 414.00 Coronary MD Atherosclerosis Unspec Type Vessel [place]/Graft 272.2 Hyperlipidemia Mixed 305.1 Tobacco Use Disorder 719.41 Pain Joint Shoulder Region Office Visit 02/11/2014 10:15a Mikki Rivas, 414.00 Coronary Atherosclerosis Unspec Type Vessel [place]/Graft 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 272.2 Hyperlipidemia Mixed 305.1 Tobacco Use Disorder v04.81 Need For Prophylactic Vaccination & Inoculation/Influenza Office Visit 09/11/2013 9:30a Mikki Rivas MD 729.1 Myalgia & Myositis Unspec 530.11 Esophagitis Reflux 305.1 Tobacco Use Disorder 780.79 Malaise And Fatigue Other Office Visit 05/23/2013 2:15p Mikki Rivas MD 786.50 Pain Chest Unspec 272.2 Hyperlipidemia Mixed 786.05 Shortness Of Breath Office Visit 06/12/2012 11:15a Mikki Rivas MD 272.2 Hyperlipidemia Mixed 305.1 Tobacco Use Disorder 796.2 Blood Pressure Reading Elevated W/O Hypertension V74.1 Screening Examination Pulmonary Tuberculosis Office Visit 06/29/2010 11:15a Mikki Rivas, 381.81 Eustachian Tube MD Dysfunction Office Visit 06/22/2010 11:15a Mikki Rivas, 382.9 Otitis Media Unspec MD Office Visit 02/03/2009 11:00a Mikki Rivas, 272.2 Hyperlipidemia Mixed 530.81 Esophageal Reflux 356.8 Neuropathy Other Spec Idiopathic Peripheral Office Visit 06/09/2008 1:45p Mikki Rivas MD 724.5 Backache Unspec Office Visit 05/06/2008 2:15p Mikki Rivas MD 272.2 Hyperlipidemia Mixed 729.5 Pain In Limb Office Visit 10/23/2007 8:15a Mikki Rivas MD 272.2 Hyperlipidemia Mixed 530.81 Esophageal Reflux 305.1 Tobacco Use Disorder Office Visit 10/24/2006 9:15a Mikki Rivas MD 272.2 Hyperlipidemia Mixed 530.81 Esophageal Reflux 305.1 Tobacco Use Disorder Office Visit 07/18/2006 10:15a Mikki Rivas MD 382.9 Otitis Media Unspec 272.2 Hyperlipidemia Mixed Office Visit 06/06/2006 9:00a Mikki Rivas MD 078.10 Viral Warts Unspec Office Visit 04/05/2006 2:00p Mikki Rivas MD 455.6 Hemorrhoids Unspec W/O Complication Office Visit 03/21/2006 11:15a Mikki Rivas MD V70.0 Exam ( Adult) General Medical Routine AT [facility] Care Facility V70.3 Examination Other Medical For Administrative Purpose Office Visit 11/29/2005 1:30p Mikki Rivas MD 785.6 Lymph Nodes Enlargement 530.81 Esophageal Reflux Office Visit 06/28/2005 10:30a Mikki Rivas, 530.81 Esophageal Reflux MD Office Visit 09/16/2004 2:15p Mikki Rivas, 382.9 Otitis Media Unspec MD Office Visit 08/09/2004 11:00a Mikki Rivas, V70.3 Examination Other Medical For Administrative Purpose 472.0 Rhinitis Chronic V06.5 Tetanus Diphtheria (DT) Office Visit 05/19/2004 11:30a Mikki Rivas MD 382.9 Otitis Media Unspec Office Visit 10/23/2003 8:30a Quynh Magana, 461.0 Sinusitis Acute RN,TECHNICIAN,MS Maxillary 786.2 Cough Office Visit 04/10/2003 8:30a Lowell Earl, 381.01 Otitis Media MD Serous Acute 706.2 Sebaceous Cyst Office Visit 02/12/2003 1:30p [facility] Jason, Quynh, 789.04 Pain Abdominal RN,TECHNICIAN,MS LEFT Lower Quadrant 724.5 Backache Unspec 599.7 Hematuria 530.81 Esophageal Reflux Office Visit 10/17/2001 1:30p Quynh Magana, 780.4 Dizziness & RN,TECHNICIAN,MS Giddiness 787.02 Nausea Alone Office Visit 09/05/2001 6:30p Quynh Magana, 465.9 URI Upper RN,TECHNICIAN,MS Respiratory Infections Acute Unspec Sites 786.2 Cough Office Visit 08/21/2001 10:30a Quynh Magana, 305.1 Tobacco Use RN,TECHNICIAN,MS Disorder 530.11 Esophagitis Reflux Office Visit 08/22/2000 2:45p [facility] Vivian Shah MD Office Visit 01/11/2000 3:00p Quynh Magana, 305.1 Tobacco Use RN,TECHNICIAN,MS Disorder Plan of Treatment Future Appointment(s):07/02/2019 9:30 am - Mikki Orellana MD at [facility]2018 - Mikki Orellana, MDR73.01 Impaired fasting glucoseComments:will keep track of this to make sure okM62.00 Separation of muscle (nontraumatic), unspecified siteComments:reassurance given, he will work on getting weight down and work on his core muscle [id number] Encounter for screening for malignant neoplasm of colonNew Labs:Fit (Fecal Occult Blood)-FCMG, Ordered: 12/25/18Comments:he will do fit testE78.2 Mixed hyperlipidemiaComments:check labs and make sure stable, adjust meds accordingly and has not smoked!! great jobR23.8 Other skin changesComments:will treat for yeast with the diflucan, Patient aware and agreeable.I10 Essential (primary) hypertensionComments:pt is currently meeting treatment goals of blood pressure less than 140/90. Pt will continue with current blood pressure medications. pt will also try and get at least 20min of exercise daily and knowsthat diet should be fruits,vegetables, and lean proteins and limit the carbs.AllNew Medication:Fluconazole 100 mg - 1 by mouth every day x 7days
== END 2019-01-09 13:50 | disposition home or self-care (01) ==
LOC: UCEAST 12:25
DX: M23.91 Unspecified internal derangement of right knee (principal); Z88.5 Allergy status to narcotic agent; Z79.82 Long term (current) use of aspirin; Z87.891 Personal history of nicotine dependence
CPT/HCPCS: 99201; G0463